=== PATIENT | male | born 1975 | race Caucasian/White ===

== ENCOUNTER 2019-11-12 08:49 | Outpatient (CLI) | payer OTHER ==
--- NOTE | 2019-11-12 09:50 | MRI ---
MRI Upper Ext Jt Rt WO Con History: Injury. Cannot raise right arm Comparison: None. Findings: Biceps tendon: Extensive interstitial and partial tearing of the extra articular biceps ten don proximal intertubercular groove. The interstitial tearing extends into the intra-articular tendon. Labrum: Intrasubstance tear throughout the posterior labrum. Intrasubstance tear of the superior labr um anterior to posterior to the biceps labral expansion. The anterior inferior labrum is torn as well as inferior labrum. Rotator cuff: High-grade near complete full-thickness tear superior 2 centimeter fibers subscapularis tendon with minimal retraction. Thin interstitial footprint tear throughout the supraspinatus tendon involving 10-15% of the footprint width. Mild inherent tendinosis infraspinatus tendon. Bones: Mild glenoid retroversion approximately 20 degrees. No acute fracture or malalignment. Type II acromion. Minimal lateral downsloping. Soft tissues: Moderate joint effusion. Small subacromial/subdeltoid bursa effusion. Muscles: Mild superior subscapularis muscle atrophy. Remainder of the muscle signal and bulk is maxi l. Cartilage: No full-thickness chondral defect is appreciated. Cartilage is relatively maintained. Impression: 1. Nearly circumferential intrasubstance labral tear without fiber displacement. 2. High-grade extra-articular interstitial and partial tearing biceps tendon proximal intertubercular groove with interstitial tear extension into the intra-articular tendon. 3. Mild glenoid retroversion approximately 20 degrees. 4. High-grade near full-thickness tear superior 2 cm fibers subscapularis tendon from the footprint w ith minimal retraction and mild atrophy. 5. Low-grade hidden interstitial footprint tear throughout the supraspinatus tendon involving 10-15% of the footprint width.
== END 2019-11-12 08:50 | disposition home or self-care (01) ==
LOC: TBSIIMAG 08:49
PROVIDERS: ATTEND Family Medicine
DX: S46.091D Other injury of muscle(s) and tendon(s) of the rotator cuff of right shoulder, subsequent encounter (principal); S43.401A Unspecified sprain of right shoulder joint, initial encounter